=== PATIENT | male | born 1980 | race African-American/Black ===

== ENCOUNTER 2021-02-10 04:44 | Emergency (ER) | payer MEDICAID ==
[~2021-02-10] VITALS: Ht 172.7 cm; Wt 80.0 kg
[2021-02-10] MEDS ORDERED: ALBU18HF2 INH (10:08)
[2021-02-10] MEDS ORDERED: METH500T4 MT (10:09)
[2021-02-10 10:36] LABS: CLARITY URINE CLEAR (CLEAR); COLOR URINE YELLOW (YELLOW); KETONES URINE NEGATIVE (NEGATIVE); LEUKOCYTE ESTERASE URINE NEGATIVE (NEGATIVE); NITRITE URINE NEGATIVE (NEGATIVE); OCCULT BLOOD URINE NEGATIVE (NEGATIVE); PROTEIN URINE NEGATIVE (NEGATIVE); SPECIFIC GRAVITY URINE 1.013 (1.005-1.030)
[2021-02-10 10:45] VITALS: BP 131/68
[2021-02-10 10:56] LABS: METHADONE URINE SCREEN NEGATIVE (NEGATIVE)
[2021-02-10 10:57] LABS: *AMPHETAMINES SCREEN URINE NEGATIVE (NEGATIVE); *BARBITURATES SCREEN URINE NEGATIVE (NEGATIVE); *BENZODIAZEPINES SCREEN URINE NEGATIVE (NEGATIVE); *COCAINE SCREEN URINE NEGATIVE (NEGATIVE); CANNABINOID URINE SCREEN PRESUMTIVE POSITIVE (NEGATIVE); OPIATES URINE SCREEN NEGATIVE (NEGATIVE); PHENCYCLIDINE URINE SCREEN NEGATIVE (NEGATIVE)
== END 2021-02-10 11:11 | disposition home or self-care (01) ==
LOC: ER 04:44
DX: F41.9 Anxiety disorder, unspecified (principal); R39.11 Hesitancy of micturition; J45.909 Unspecified asthma, uncomplicated
CPT/HCPCS: 71045; 76770; 80305; 81003; 99285; Z7610

== ENCOUNTER 2021-02-25 02:28 | Emergency (ER) | payer MEDICAID ==
[~2021-02-25] VITALS: Ht 180.3 cm; Wt 87.0 kg
[~2021-02-25 02:28] MED LIST: ALBU18HF2 INH; METH500T4 MT
[2021-02-25] MEDS ORDERED: IPRATROPIUM BROMIDE (0.02%) 0.5MG/2.5ML NEB HHN STA (03:22)
[2021-02-25] MEDS ORDERED: PREDNISONE 20MG TABLET PO STA (03:22)
[2021-02-25] MEDS ORDERED: ALBUTEROL (0.083%) 2.5MG/3ML NEB HHN STA (03:22)
[2021-02-25] MEDS ORDERED: P20 MT (03:54)
[2021-02-25] MEDS ORDERED: ALBU6.7H9 INH (03:54)
[2021-02-25 05:00] VITALS: BP 130/72
== END 2021-02-25 05:18 | disposition home or self-care (01) ==
LOC: ER 02:28
DX: J45.901 Unspecified asthma with (acute) exacerbation (principal); Z79.899 Other long term (current) drug therapy
CPT/HCPCS: 71045; 94644; 99285; J7512; Z7610

== ENCOUNTER 2021-03-06 01:37 | Emergency (ER) | payer MEDICAID ==
[~2021-03-06] VITALS: Ht 177.8 cm; Wt 80.0 kg
[~2021-03-06 01:37] MED LIST changes: +ALBU6.7H9 INH; +P20 MT
[2021-03-06 02:54] LABS: BASOPHILS % 0.9 % (0.0-2.0); CHLORIDE 110 mEq/L (98-107); EOSINOPHILS % 4.1 % (0.0-5.0); HEMATOCRIT. 40.9 % (42.0-52.0); HEMOGLOBIN. 13.3 g/dL (14.0-18.0); LYMPHOCYTES % 19.3 % (20.0-50.0); MEAN CORPUSCULAR HEMOGLOBIN 23.1 pg (28.0-32.0); MEAN CORPUSCULAR VOLUME 71.5 fL (80.0-94.0); MONOCYTES % 6.6 % (2.0-8.0); NEUTROPHILS % 69.1 % (40.0-76.0); PLATELET 256 x1000/uL (130-400); RED BLOOD CELL COUNT 5.73 mill/uL (4.7-6.1); RED CELL DISTRIBUTION WIDTH 16.2 % (11.6-14.6)
[2021-03-06] MEDS ORDERED: IPRATROPIUM/ALBUTEROL 0.5-3(2.5)MG/3ML NEB HHN ONE (03:15)
[2021-03-06] MEDS ORDERED: IPRATROPIUM/ALBUTEROL 0.5-3(2.5)MG/3ML NEB HHN PRN (11:45)
[2021-03-06] MEDS ORDERED: GUAIFENESIN 200MG/10ML SUGAR FREE UDC PO PRN (11:45)
[2021-03-06] MEDS ORDERED: ACETAMINOPHEN 325MG TABLET PO PRN ×2 (11:45)
[2021-03-06] MEDS ORDERED: ZOLPIDEM TARTRATE 5MG TABLET PO PRN (11:45)
[2021-03-06] MEDS ORDERED: MAGNESIUM/ALUMINUM HYDROXIDE/SIMETHICONE 30ML UDC PO PRN (11:45)
[2021-03-06] MEDS ORDERED: DIPHENHYDRAMINE 50MG/ML VIAL IV PRN (11:45)
[2021-03-06] MEDS ORDERED: IPRATROPIUM/ALBUTEROL 0.5-3(2.5)MG/3ML NEB HHN SCH (11:45)
[2021-03-06] MEDS ORDERED: SODIUM CHLORIDE 0.9% INJ 3ML FLUSH IVF SCH (14:00)
[2021-03-06 16:01] VITALS: BP 110/71
== END 2021-03-06 16:05 | disposition home or self-care (01) ==
LOC: ER 01:37 → ENRESERV 15:25 → CANBEDREQ 15:55 → ER 16:05
DX: R06.02 Shortness of breath (principal); R94.31 Abnormal electrocardiogram [ECG] [EKG]; J45.909 Unspecified asthma, uncomplicated
CPT/HCPCS: 36415; 71045; 80053; 83880; 84484; 85025; 93005; 94640; 96374; 99285; Z7610

== ENCOUNTER 2021-04-17 08:59 | Emergency (ER) | payer MEDICAID ==
[~2021-04-17] VITALS: Ht 180.3 cm; Wt 73.0 kg
[~2021-04-17 08:59] MED LIST changes: +ALBU05 NEB
[2021-04-17 09:05] VITALS: BP 135/80
[2021-04-17] MEDS ORDERED: ALBU05 NEB ×2 (09:23→09:30)
== END 2021-04-17 09:52 | disposition home or self-care (01) ==
LOC: ER 08:59
DX: J45.909 Unspecified asthma, uncomplicated (principal); Z76.0 Encounter for issue of repeat prescription; Z79.899 Other long term (current) drug therapy
CPT/HCPCS: 99281; 99283

== ENCOUNTER 2021-10-20 07:55 | Emergency (ER) | payer MEDICAID ==
[~2021-10-20] VITALS: Ht 180.3 cm; Wt 78.5 kg
[2021-10-20] MEDS ORDERED: IPRATROPIUM BROMIDE (0.02%) 0.5MG/2.5ML NEB HHN STA (08:21)
[2021-10-20] MEDS ORDERED: ALBUTEROL (0.083%) 2.5MG/3ML NEB HHN STA (08:21)
[2021-10-20] MEDS ORDERED: ALBU2.5V13 NEB (08:45)
[2021-10-20 09:31] VITALS: BP 132/77
== END 2021-10-20 09:32 | disposition home or self-care (01) ==
LOC: ER 07:55
DX: J45.901 Unspecified asthma with (acute) exacerbation (principal); Z76.0 Encounter for issue of repeat prescription; Z87.891 Personal history of nicotine dependence
CPT/HCPCS: 94640; 99283; Z7610